=== PATIENT | male | born 1945 | race Caucasian/White ===

== ENCOUNTER 2019-02-13 09:14 | Inpatient (IN) | payer MEDICARE, OTHER ==
[~2019-02-13] VITALS: Ht 167.6 cm; Wt 102.8 kg
[2019-02-13 09:59] LABS: BASOPHILS % (AUTO) 0.5 % (0.0-5.0); EOSINOPHILS % (AUTO) 0.6 % (0.0-8.0); HEMATOCRIT 41.8 % (42-54); LYMPHOCYTES % (AUTO) 12.9 % (21.0-51.0); MEAN CORPUSCULAR HEMOGLOBIN 32.1 pg (27.0-33.0); MEAN CORPUSCULAR HGB CONC 34.8 g/dL (32.0-36.0); MEAN CORPUSCULAR VOLUME 92.3 fL (79-99); MONOCYTES % (AUTO) 9.5 % (3.0-13.0); NEUTROPHILS % (AUTO) 76.5 % (40.0-77.0); NUCLEATED RED BLOOD CELLS 0.1 % (0.0-0.19); PLATELET COUNT (AUTO) 178 K/uL (130-400); RED BLOOD CELL COUNT(AUTO) 4.52 MIL/uL (4.50-6.20); RED CELL DISTRIBUTION WIDTH 13.7 % (11.0-15.5); WHITE BLOOD COUNT (AUTO) 11.2 K/uL (4.8-10.8)
[2019-02-13 10:17] LABS: CREATININE 3.1 mg/dL (0.5-1.5); POTASSIUM 4.1 mmol/L (3.5-5.1)
[2019-02-13 10:22] LABS: ALBUMIN 3.8 g/dL (3.5-5.0); BILIRUBIN,TOTAL 0.7 mg/dL (0.2-1.0); TOTAL PROTEIN, SERUM 7.4 g/dL (6.0-8.3)
[2019-02-13 10:31] LABS: B-TYPE NATRIURETIC PEPTIDE 11 pg/mL (0-100)
[2019-02-13 10:40] LABS: APPEARANCE,URINE Clear (CLEAR); BILIRUBIN,URINE Negative (NEGATIVE); COLOR,URINE Yellow (YELLOW); GLUCOSE, URINE (UA) Negative (NEGATIVE); KETONES,URINE Negative (NEGATIVE); LEUKOCYTE ESTERASE ,URINE Negative (NEGATIVE); NITRATE,URINE Negative (NEGATIVE); OCCULT BLOOD,URINE Negative (NEGATIVE); PROTEIN,URINE Negative (NEGATIVE); UROBILINOGEN,URINE 0.2 mg/dL (0.2-1.0)
[2019-02-13] MEDS: SODIUM CHLORIDE 0.9% 1000ML 1,000 ML IV SCH ×2 (13:10→17:51)
[2019-02-13] MEDS: LACTULOSE 20 GM/30 ML UDCUP PO SCH ×2 (13:15→20:42)
[2019-02-13] MEDS ORDERED: ONDANSETRON HCL 4 MG/2 ML VIAL IV PRN (13:15)
[2019-02-13] MEDS ORDERED: HYDRALAZINE HCL 20 MG/ML VIAL IV PRN (13:15)
[2019-02-13] MEDS ORDERED: ACETAMINOPHEN 325 MG TAB PO PRN (13:15)
[2019-02-13] MEDS ORDERED: SODIUM CHLORIDE 0.9% 1000ML 1,000 ML IV ONE (14:05)
[2019-02-13] MEDS ORDERED: ACETAMINOPHEN 325 MG TAB ONE (14:10)
[2019-02-13] MEDS ORDERED: ENOXAPARIN SODIUM 40 MG/0.4 ML SYRINGE SQ ONE (15:21)
[2019-02-13] MEDS ORDERED: LACTULOSE 20 GM/30 ML UDCUP ONE (15:21)
[2019-02-13 16:09] LABS: PHOSPHORUS 3.2 mg/dL (2.5-4.9)
[2019-02-13 16:46] LABS: CRP QUANTITATIVE < 2.00 mg/L (0.00-9.0)
[2019-02-13 16:52] VITALS: BP 139/85
[2019-02-13] MEDS ORDERED: KETOROLAC TROMETHAMINE 30MG/ML IV PRN (19:00)
[2019-02-13 19:44] VITALS: BP 135/88
[2019-02-13] MEDS: FAMOTIDINE/PF 20 MG/2 ML VIAL IV SCH (20:42)
[2019-02-13 23:46] VITALS: BP 123/63
[2019-02-14] MEDS: SODIUM CHLORIDE 0.9% 1000ML 1,000 ML IV SCH (01:54)
[2019-02-14 04:33] VITALS: BP 118/66
[2019-02-14] MEDS ORDERED: BUDE10.2 IH (05:35)
[2019-02-14] MEDS ORDERED: SPIR25TA PO (05:35)
[2019-02-14] MEDS ORDERED: LAMO25TA9 PO (05:35)
[2019-02-14] MEDS ORDERED: DESV25TA PO (05:35)
[2019-02-14] MEDS ORDERED: FOLI1CAP16 PO (05:35)
[2019-02-14] MEDS ORDERED: LEVO125T11 PO (05:35)
[2019-02-14] MEDS ORDERED: TAMS-1 PO (05:38)
[2019-02-14] MEDS ORDERED: FURO20TA4 PO (05:38)
[2019-02-14] MEDS ORDERED: METO-409 PO (05:41)
[2019-02-14] MEDS ORDERED: ASPI-555 PO (05:41)
[2019-02-14] MEDS ORDERED: MVIT PO (05:41)
[2019-02-14] MEDS ORDERED: INSU3INS5 SQ ×2 (05:59)
[2019-02-14] MEDS ORDERED: ALBU90AE IH (05:59)
[2019-02-14] MEDS ORDERED: QUET300T44 PO (06:00)
[2019-02-14] MEDS ORDERED: GLIM1TAB3 PO (06:00)
[2019-02-14] MEDS ORDERED: ATOR-2 PO (06:02)
[2019-02-14] MEDS ORDERED: SIME180C46 PO (06:03)
--- NOTE | 2019-02-14 06:08 | NUR ---
HOME MEDICATION FOUND LIST OF MEDICATIONS. ENTERED IN COMPUTER AND RETURNED PAPER TO PATIENT.
[2019-02-14 07:00] VITALS: BP 138/76
[2019-02-14] MEDS: FAMOTIDINE/PF 20 MG/2 ML VIAL IV SCH ×2 (08:00→21:14)
[2019-02-14] MEDS: ACETAMINOPHEN 325 MG TAB PO PRN (08:00)
[2019-02-14] MEDS: LACTULOSE 20 GM/30 ML UDCUP PO SCH (08:00)
[2019-02-14] MEDS: ENOXAPARIN SODIUM 40 MG/0.4 ML SYRINGE SQ SCH (08:01)
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
[2019-02-14] MEDS ORDERED: ALBUTEROL SULFATE 0.083% 2.5 MG/3 ML INH IH PRN (12:30)
[2019-02-14] MEDS ORDERED: ZOLPIDEM TARTRATE 5 MG TAB PO PRN (12:30)
[2019-02-14 12:37] VITALS: BP 136/71
[2019-02-14 12:37] LABS: CREATININE 2.3 mg/dL (0.5-1.5); POTASSIUM 4.2 mmol/L (3.5-5.1)
[2019-02-14 12:49] LABS: HEMATOCRIT 38.1 % (42-54); MEAN CORPUSCULAR HGB CONC 34.4 g/dL (32.0-36.0); PLATELET COUNT (AUTO) 173 K/uL (130-400); WHITE BLOOD COUNT (AUTO) 10.9 K/uL (4.8-10.8)
[2019-02-14 13:26] LABS: LYMPHOCYTES % (MANUAL) 14 % (22-44); MAN.DIFF COMMENT-IMPRESSION MANUAL DIFFERENTIAL; MONOCYTES % (MANUAL) 4 % (2-9); SEGMENTED NEUTROPHILS % 82 % (40-70)
[2019-02-14 13:27] LABS: PLATELET MORPHOLOGY COMMENT ADEQUATE
[2019-02-14 16:00] VITALS: BP 116/61
[2019-02-14] MEDS: SIMETHICONE 80 MG TAB.CHEW PO SCH (17:00)
[2019-02-14] MEDS: GLIMEPIRIDE 2 MG TABLET PO SCH (17:33)
[2019-02-14] MEDS: INSULIN HUMULIN 70/30 100 UNIT/ML 3ML SQ SCH (17:36)
[2019-02-14] MEDS: ALBUTEROL SULFATE 0.083% 2.5 MG/3 ML INH IH SCH ×2 (18:06→23:24)
[2019-02-14] MEDS: BUDESONIDE 0.5 MG/2 ML INH IH SCH (18:06)
[2019-02-14 20:01] VITALS: BP 119/61
[2019-02-14] MEDS ORDERED: ATORVASTATIN CALCIUM 40 MG TABLET PO SCH (21:00)
[2019-02-14] MEDS: QUETIAPINE FUMARATE 100 MG TAB PO SCH (21:14)
[2019-02-14 23:35] VITALS: BP 137/66
[2019-02-15 03:46] VITALS: BP 134/74
[2019-02-15 05:10] LABS: CREATININE 1.8 mg/dL (0.5-1.5); POTASSIUM 3.7 mmol/L (3.5-5.1)
[2019-02-15 05:27] LABS: HEMATOCRIT 35.9 % (42-54); MEAN CORPUSCULAR HEMOGLOBIN 32.2 pg (27.0-33.0); MEAN CORPUSCULAR HGB CONC 34.5 g/dL (32.0-36.0); MEAN CORPUSCULAR VOLUME 93.4 fL (79-99); PLATELET COUNT (AUTO) 153 K/uL (130-400); RED BLOOD CELL COUNT(AUTO) 3.84 MIL/uL (4.50-6.20); RED CELL DISTRIBUTION WIDTH 13.6 % (11.0-15.5); WHITE BLOOD COUNT (AUTO) 9.3 K/uL (4.8-10.8)
[2019-02-15 06:13] LABS: BAND NEUTROPHILS % (MANUAL) 1 % (0-2); EOSINOPHILS % (MANUAL) 2 % (1-6); LYMPHOCYTES % (MANUAL) 20 % (22-44); MAN.DIFF COMMENT-IMPRESSION MANUAL DIFFERENTIAL; MONOCYTES % (MANUAL) 3 % (2-9); PLATELET MORPHOLOGY COMMENT ADEQUATE; REACTIVE LYMPHOCYTES 2 % (0-0); SEGMENTED NEUTROPHILS % 72 % (40-70)
[2019-02-15] MEDS: ALBUTEROL SULFATE 0.083% 2.5 MG/3 ML INH IH SCH ×2 (06:26→11:26)
[2019-02-15] MEDS: BUDESONIDE 0.5 MG/2 ML INH IH SCH (06:35)
[2019-02-15 08:00] VITALS: BP 160/68
[2019-02-15] MEDS ORDERED: INSULIN HUMULIN 70/30 100 UNIT/ML 3ML SQ SCH (08:00)
[2019-02-15] MEDS: ACETAMINOPHEN 325 MG TAB PO PRN (08:35)
[2019-02-15] MEDS: FAMOTIDINE/PF 20 MG/2 ML VIAL IV SCH (08:35)
[2019-02-15] MEDS: SIMETHICONE 80 MG TAB.CHEW PO SCH ×3 (08:35→16:55)
[2019-02-15] MEDS: QUETIAPINE FUMARATE 100 MG TAB PO SCH (08:37)
[2019-02-15] MEDS: GLIMEPIRIDE 2 MG TABLET PO SCH ×2 (08:37→16:56)
--- NOTE | 2019-02-15 08:40 | NUR ---
Ryder Cath removed. Patient tolerated well. DTV at 1420. Instructed if discomfort or difficulty urinating call nurse. Verbalized understanding.
[2019-02-15] MEDS ORDERED: TAMSULOSIN HCL 0.4 MG CAP.ER.24H PO SCH (09:00)
[2019-02-15] MEDS ORDERED: FUROSEMIDE 20 MG TABLET PO SCH (09:00)
[2019-02-15] MEDS ORDERED: DESVENLAFAXINE PO SCH (09:00)
[2019-02-15] MEDS ORDERED: LAMOTRIGINE 25 MG TAB PO SCH (09:00)
[2019-02-15] MEDS ORDERED: METOPROLOL SUCCINATE PO SCH (09:00)
[2019-02-15] MEDS ORDERED: FOLIC ACID/VITAMIN B COMP W-C 1 MG CAP/TAB PO SCH (09:00)
[2019-02-15] MEDS ORDERED: SPIRONOLACTONE 25 MG TAB PO SCH (09:00)
[2019-02-15] MEDS ORDERED: LEVOTHYROXINE 125 MCG TABLET PO SCH (09:00)
[2019-02-15] MEDS ORDERED: ASPIRIN 81 MG EC TAB PO SCH (09:00)
[2019-02-15] MEDS: ENOXAPARIN SODIUM 40 MG/0.4 ML SYRINGE SQ SCH (09:01)
[2019-02-15 12:06] VITALS: BP 138/61
--- NOTE | 2019-02-15 14:40 | NUR ---
Patient voided well. When asked if he urinated in urinal patient states he was having a bm and the stream of urine came out and it was a good amount of urine. patient in no distress or discomfort.
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
[2019-02-15 16:41] VITALS: BP 135/64
[2019-02-15] MEDS: INSULIN HUMULIN 70/30 100 UNIT/ML 3ML SQ SCH (16:58)
--- NOTE | 2019-02-15 17:50 | NUR ---
Patient discharged in stable condition. No new home medications. Instructed to call [facility] tomorrow and [facility] appointment [facility]t when i was trying to make an appointment their system went down. Instructed to keep hydrating and stated he drinks alot of soda. Instructed on high fiber diet. No other questions or concerns and stated he will go over the discharge packet himself. IV removed. pt tolerated well.
== END 2019-02-15 18:05 | disposition home or self-care (01) | DRG 388 ==
LOC: EDH 09:14 → OBSVTOIN 13:10 → EDHIP 13:10 → 3DH 17:08
PROVIDERS: ADMIT Internal Medicine; ATTEND Internal Medicine
DX: K56.41 Fecal impaction (principal); N17.0 Acute kidney failure with tubular necrosis; E11.9 Type 2 diabetes mellitus without complications; J44.9 Chronic obstructive pulmonary disease, unspecified; I50.9 Heart failure, unspecified; I11.0 Hypertensive heart disease with heart failure; R44.1 Visual hallucinations; Z90.49 Acquired absence of other specified parts of digestive tract; G89.29 Other chronic pain; F17.200 Nicotine dependence, unspecified, uncomplicated; M54.5 Low back pain; E86.0 Dehydration
CPT/HCPCS: 36415; 71045; 74021; 74176; 80048; 80053; 81003; 82948; 83690; 83735; 83880; 84100; 84145; 84484; 85025; 86140; 93005; 94640; 94660; 94664; 97039; G0378; J1650; J1815; J1885; J3490; J7030

== ENCOUNTER 2019-02-20 02:39 | Emergency (ER) | payer OTHER ==
[~2019-02-20 02:39] MED LIST: ALBU90AE IH; ASPI-555 PO; ATOR-2 PO; BUDE10.2 IH; DESV25TA PO; FOLI1CAP16 PO; FURO20TA4 PO; GLIM1TAB3 PO; INSU3INS5 SQ; LAMO25TA9 PO; LEVO125T11 PO; METO-409 PO; QUET300T44 PO; SIME180C46 PO; SPIR25TA PO; TAMS-1 PO
[2019-02-20 03:18] LABS: POTASSIUM 3.9 mmol/L (3.5-5.1)
[2019-02-20 03:21] LABS: BASOPHILS % (AUTO) 0.9 % (0.0-5.0); EOSINOPHILS % (AUTO) 1.4 % (0.0-8.0); HEMATOCRIT 37.2 % (42-54); LYMPHOCYTES % (AUTO) 20.3 % (21.0-51.0); MEAN CORPUSCULAR HGB CONC 34.4 g/dL (32.0-36.0); MEAN CORPUSCULAR VOLUME 93.1 fL (79-99); MONOCYTES % (AUTO) 11.1 % (3.0-13.0); NEUTROPHILS % (AUTO) 66.3 % (40.0-77.0); PLATELET COUNT (AUTO) 196 K/uL (130-400); RED CELL DISTRIBUTION WIDTH 13.7 % (11.0-15.5); WHITE BLOOD COUNT (AUTO) 11.4 K/uL (4.8-10.8)
[2019-02-20 03:24] LABS: ALBUMIN 3.3 g/dL (3.5-5.0); BILIRUBIN,TOTAL 0.3 mg/dL (0.2-1.0); TOTAL PROTEIN, SERUM 6.8 g/dL (6.0-8.3)
[2019-02-20 03:43] LABS: INR 0.93 (0.85-1.15); PARTIAL THROMBOPLASTIN TIME 23.4 SEC (26.3-35.5); PROTHROMBIN TIME 9.8 SEC (9.6-11.6)
== END 2019-02-20 05:06 | disposition home or self-care (01) ==
LOC: EDH 02:39
DX: K59.00 Constipation, unspecified (principal); R00.2 Palpitations; J44.9 Chronic obstructive pulmonary disease, unspecified; E11.9 Type 2 diabetes mellitus without complications; I11.0 Hypertensive heart disease with heart failure; I50.9 Heart failure, unspecified; Z90.49 Acquired absence of other specified parts of digestive tract; Z72.0 Tobacco use
CPT/HCPCS: 36415; 74176; 80053; 82150; 82270; 82550; 84484; 85025; 85610; 85730; 93005